=== PATIENT | female | born 1985 | race Two or more races ===

== ENCOUNTER 2016-10-13 10:22 | Emergency (ER) | payer MEDICAID, OTHER ==
[~2016-10-13] VITALS: Ht 157.5 cm; Wt 72.1 kg
[2016-10-13 10:22] VITALS: BP 121/70
[~2016-10-13 10:22] MED LIST: ALBUTEROL SULF8.5 GM INH; AMCINONIDE TP; ATARAX50 MG ORAL; AZITHROMYCIN250 MG ORAL; AZITHROMYCIN250 MG PO; BACTRIM DS TAB1 EAC1 ORAL; CLOBETASOL EMOL15 GM TP; CYCLOBENZAPRINE10 MG ORAL; DIFLUCAN150 MG PO; DOVONEX60 GM TOP; FLUOCINONIDE-E15 G1 TP; FLUOCINONIDE1 GM MC; GUAIFENESIN-CO118 M1 ORAL; HUMIRA; HUMIRA40 MG/0.2 SUBQ; HYDROCODON-ACE1 EA15 ORAL; IRON325 M2 PO; KEFLEX500 MG ORAL; KENALOG 0.5% CR15 GM TOPIC; MACROBID100 MG ORAL; MEDROL DOSEPAK4 MG ORAL; METRONIDAZOLE500 MG ORAL; NKM; NORCO 5-325 TA1 EACH ORAL; NORCO1 EA ORAL; PHENERGAN/CODE120 ML PO; PREDNISONE20 MG PO; PRENATAL MULTI1 EAC1 PO; TYLENOL325 MG ORAL; ZOFRAN ODT4 MG ORAL; ZOFRAN4 M1 ORAL
[2016-10-13] MEDS ORDERED: Albuterol ud Inhalation HHN ONE (12:45)
--- NOTE | 2016-10-13 13:25 | Emergency Room Report ---
History of Present Illness General Chief Complaint: Upper Respiratory Illness Source: Patient Present Illness HPI Patient states that for the past 4 days he has had cough and congestion. She states that the cough is severe. She has a history of asthma and feels short of breath. She also has had ear pain. She denies fever or chills. She denies nausea or vomiting. She states that she does have a history of needing albuterol when she gets respiratory infections but is currently out of her albuterol. She also states that she noticed that the skin on her face was swollen this morning. She has no other complaints. Allergies: Coded Allergies: No Known Allergies (Unverified , 05/07/12) Patient History Past Medical History: see triage record, asthma Social History: Denies: alcohol use, drug use, smoking Last Menstrual Period: on period Now: No Reviewed Nursing Documentation: PMH: Agreed, PSxH: Agreed Nursing Documentation-PMH Past Medical History: No History, Except For Hx Hypertension: No - PSORIASIS, KIDNEY STONES Hx Pacemaker: No Hx Dialysis: No Review of Systems All Other Systems: negative except mentioned in HPI Physical Exam Vital Signs Date Time Temp Pulse Resp B/P Pulse Ox O2 Delivery O2 Flow Rate FiO2 10/13/16 10:22 98.1 80 20 121/70 100 Room Air 10/13/16 12:48 21 Sp02 EP Interpretation: reviewed, normal General Appearance: no apparent distress, alert, GCS 15, non-toxic Head: normocephalic, atraumatic Eyes: bilateral eye PERRL, bilateral eye normal inspection ENT: hearing grossly normal, normal pharynx, no angioedema, normal voice Neck: full range of motion, supple/symm/no masses Respiratory: chest non-tender, lungs clear, normal breath sounds, speaking full sentences Cardiovascular #1: regular rate, rhythm, no edema Rectal: deferred Musculoskeletal: back normal, gait/station normal, normal range of motion, non- tender Neurologic: alert, oriented x3, responsive, motor strength/tone normal, sensory intact, speech normal Psychiatric: judgement/insight normal, memory normal, mood/affect normal, no suicidal/homicidal ideation Skin: normal color, no rash, warm/dry, well hydrated Medical Decision Making Diagnostic Impression: Primary Impression: Upper respiratory infection Additional Impression: Asthma exacerbation ER Course This patient has a clinical presentation with upper respiratory tract infection. The evaluation was very reassuring with a normal lung exam, no respiratory distress, normal pulse oximetry. I am not concerned for pneumonia in this patient. Chest x-ray shows no opacity. Patient has a history of asthma and so will give the patient a Z-Yonathan, prednisone and albuterol. The patient given return precautions and followup instructions. No emergency medical condition was identified. Chest X-Ray Diagnostic Results EP Interpretation: Yes Findings: no consolidation, no effusion, no pneumothorax, no acute cardiopulmonary disease Number of Views: 1 Last Vital Signs Date Time Temp Pulse Resp B/P Pulse Ox O2 Delivery O2 Flow Rate FiO2 10/13/16 12:51 70 18 Room Air 21 10/13/16 12:50 99 10/13/16 10:22 98.1 121/70 Disposition: HOME, SELF-CARE Condition: Improved Referrals: NON PHYSICIAN (PCP) Patient Instructions: Upper Respiratory Infection, Adult LEANA VILLALOBOS D.O. Oct 13, 2016 13:25
--- NOTE | 2016-10-13 13:31 | Diagnostic Imaging Report ---
Indication: COUGH Technique: One view of the chest Comparison: 11/24/2015 Findings: Lungs and pleural spaces are clear. Heart size is normal. No significant change Impression: No acute process
[2016-10-13] MEDS ORDERED: ALBUTEROL SULF8.5 GM INH (13:40)
[2016-10-13] MEDS ORDERED: ZITHROMAX250 MG ORAL (13:40)
[2016-10-13] MEDS ORDERED: PREDNISONE20 MG ORAL (13:40)
[2016-10-13 13:46] VITALS: BP 107/60
== END 2016-10-13 13:47 | disposition home or self-care (01) ==
LOC: EMR 11:06
DX: J06.9 Acute upper respiratory infection, unspecified (principal); J45.901 Unspecified asthma with (acute) exacerbation; Z87.442 Personal history of urinary calculi
CPT/HCPCS: 71010; 94640; 94664; 99284

== ENCOUNTER 2016-12-20 21:06 | Emergency (ER) | payer MEDICAID ==
[~2016-12-20] VITALS: Ht 157.5 cm; Wt 75.7 kg
[~2016-12-20 21:06] MED LIST changes: +PREDNISONE20 MG ORAL; +ZITHROMAX250 MG ORAL
[2016-12-20] MEDS ORDERED: NKM (21:23)
[2016-12-20] MEDS ORDERED: Acetaminophen 500mg (ES) tab PO ONE (21:45)
[2016-12-20] MEDS ORDERED: IBUPROFEN600 MG ORAL (22:45)
[2016-12-20 22:50] VITALS: BP 107/55
--- NOTE | 2016-12-21 07:26 | Emergency Room Report ---
History of Present Illness General Chief Complaint: Pain Source: Patient Present Illness HPI 31-year-old female presents ED complaining of right big toe pain. States that last night she accidentally closed a large metal folding table on her right foot. Was not wearing shoes. Patient notes pain and swelling to the right big toe. 8/10, throbbing, nonradiating. Notes pain but is able to walk. Denies any other injuries. No other aggravating relieving factors. Denies any other associated symptoms Allergies: Coded Allergies: No Known Allergies (Unverified , 12/20/16) Patient History Past Medical History: none Past Surgical History: none Pertinent Family History: none Social History: Denies: alcohol use, drug use, smoking Last Menstrual Period: 3 weeks ago Now: No - IUD Immunizations: UTD Reviewed Nursing Documentation: PMH: Agreed, PSxH: Agreed Nursing Documentation-PMH Past Medical History: No History, Except For Hx Hypertension: No - PSORIASIS, KIDNEY STONES Hx Pacemaker: No Hx Dialysis: No Review of Systems All Other Systems: negative except mentioned in HPI Physical Exam Vital Signs Date Time Temp Pulse Resp B/P Pulse Ox O2 Delivery O2 Flow Rate FiO2 12/20/16 21:17 97.9 69 16 109/70 98 Room Air Sp02 EP Interpretation: reviewed, normal General Appearance: no apparent distress, alert, GCS 15, non-toxic Head: normocephalic Eyes: bilateral eye PERRL, bilateral eye normal inspection ENT: normal ENT inspection Neck: normal inspection Respiratory: normal inspection Cardiovascular #1: normal inspection Gastrointestinal: normal inspection Rectal: deferred Genitourinary: no CVA tenderness Musculoskeletal: tender - R big toe Neurologic: alert, oriented x3, responsive, motor strength/tone normal, sensory intact, speech normal Psychiatric: normal inspection Skin: normal inspection Lymphatic: normal inspection Medical Decision Making Diagnostic Impression: Primary Impression: Toe contusion Qualified Codes: S90.111A - Contusion of right great toe without damage to nail, initial encounter ER Course Hospital Course 31-year-old F presents to ED complaining of R big toe pain/bruising Differential diagnoses include: Fracture, dislocation, sprain, contusion Clinical course Patient placed on stretcher. After initial history and physical, I ordered pain medications and Xrays of R foot Xrays prelim read shows no acute fracture/dislocation. placed in kerlex wrap Diagnosis - toe contusion Stable and discharged to home. apply ice, keep elevated. weight bear as tolerated. Followup with PMD. Return to ED if symptoms recur or worsen Other X-Ray Diagnostic Results Other X-Ray Diagnostic Results : X-Ray Ordered: R foot EP Interpretation: Yes Findings: no fractures, no dislocation, no soft tissue swelling Number of Views: 3 Last Vital Signs Date Time Temp Pulse Resp B/P Pulse Ox O2 Delivery O2 Flow Rate FiO2 12/20/16 22:50 97.8 61 14 107/55 98 Room Air Status: improved Disposition: HOME, SELF-CARE Condition: Stable Scripts Ibuprofen* (MOTRIN*) 600 Mg Tablet 600 MG ORAL Q8H Y for For Pain, #30 TAB 0 Refills Prov: NADIA AYALA M.D. 12/20/16 Referrals: NON PHYSICIAN (PCP) Patient Instructions: Contusion, [id number] NADIA AYALA M.D. December 21, 2016 07:26
--- NOTE | 2016-12-21 12:16 | Diagnostic Imaging Report ---
Indication: PAIN Technique: 3 views right foot Comparison: none Findings: There is mild degenerative changes of first metatarsal phalangeal joint. There is minimal hallux valgus and metatarsus adductus. No acute fractures. No dislocations. Joint spaces are preserved. Impression: Negative
== END 2016-12-20 22:50 | disposition home or self-care (01) ==
LOC: EMR 21:34
DX: S90.111A Contusion of right great toe without damage to nail, initial encounter (principal); X58.XXXA Exposure to other specified factors, initial encounter; Y93.9 Activity, unspecified; Y92.9 Unspecified place or not applicable; Z87.442 Personal history of urinary calculi
CPT/HCPCS: 99283

== ENCOUNTER 2017-03-11 20:34 | Emergency (ER) | payer MEDICAID ==
[~2017-03-11] VITALS: Ht 160 cm; Wt 76.7 kg
[~2017-03-11 20:34] MED LIST changes: +IBUPROFEN600 MG ORAL
[2017-03-11] MEDS ORDERED: NKM (20:53)
[2017-03-11] MEDS ORDERED: PREDNISONE20 MG ORAL (21:22)
[2017-03-11] MEDS ORDERED: HYDROCODON-ACE1 EA15 ORAL (21:22)
[2017-03-11] MEDS ORDERED: BENADRYL25 MG ORAL (21:22)
--- NOTE | 2017-03-11 21:23 | Emergency Room Report ---
History of Present Illness General Chief Complaint: General Complaint Source: Patient Present Illness HPI Is a 31-year-old female with psoriasis. She presents with chief complaint of itchiness and swelling to joints or hand. Similar symptom in the past. Denies any fever chills but no nausea no vomiting. No trauma. Pain is 8/10. Worse with scratching. [id number] Benadryl not helping. Allergies: Coded Allergies: No Known Allergies (Unverified , 12/20/16) Patient History Past Medical History: see triage record, old chart reviewed Past Surgical History: other Pertinent Family History: none Social History: Denies: smoking Last Menstrual Period: 1 month ago Now: No Immunizations: other Reviewed Nursing Documentation: PMH: Agreed, PSxH: Agreed Nursing Documentation-PMH Past Medical History: No History, Except For Hx Cardiac Problems: No - Psoriasis Hx Hypertension: No Hx Pacemaker: No Hx COPD: No - Bronchitis Hx Dialysis: No Review of Systems Eye: Denies: blurred vision, eye pain ENT: Denies: ear pain, nose congestion, throat swelling Respiratory: Denies: cough, shortness of breath Cardiovascular: Denies: chest pain, palpitations Gastrointestinal: Denies: abdominal pain, diarrhea, nausea, vomiting Musculoskeletal: Reports: joint pain, joint swelling, muscle stiffness, Denies : back pain Skin: Denies: rash Neurological: Denies: headache, numbness Endocrine: Denies: increased thirst, increased urine Hematologic/Lymphatic: Denies: easy bruising All Other Systems: negative except mentioned in HPI Physical Exam Vital Signs Date Time Temp Pulse Resp B/P Pulse Ox O2 Delivery O2 Flow Rate FiO2 03/11/17 20:47 98.6 80 16 107/73 100 Room Air vitals normal Sp02 EP Interpretation: reviewed, normal General Appearance: well appearing, no apparent distress, alert Head: normocephalic, atraumatic Eyes: bilateral eye EOMI, bilateral eye PERRL ENT: hearing grossly normal, normal pharynx Neck: full range of motion, supple, no meningismus Respiratory: chest non-tender, lungs clear, normal breath sounds Cardiovascular #1: regular rate, rhythm, no murmur Gastrointestinal: normal bowel sounds, non tender, no mass, no organomegaly, no bruit, non-distended Musculoskeletal: back normal, gait/station normal, normal range of motion, swelling - She has generalized edema of the hands and finger. No erythema. No warmth. Psychiatric: mood/affect normal Skin: warm/dry Medical Decision Making Diagnostic Impression: Primary Impression: Psoriasis Additional Impression: Arthralgia of both hands ER Course Patient with arthralgia and edema joints of the hands. No evidence of septic joint. Onset infection. We'll put back on prednisone. We'll discharge home. Last Vital Signs Date Time Temp Pulse Resp B/P Pulse Ox O2 Delivery O2 Flow Rate FiO2 03/11/17 20:47 98.6 80 16 107/73 100 Room Air Status: improved Disposition: HOME, SELF-CARE Condition: Stable Scripts Prednisone* (PREDNISONE*) 20 Mg Tablet 60 MG ORAL DAILY, #12 TAB Prov: ASHLEY ROGER M.D. 03/11/17 Diphenhydramine Hcl* (BENADRYL*) 25 Mg Capsule 50 MG ORAL Q6H Y for Itching, #30 CAP Prov: ASHLEY ROGER M.D. 03/11/17 Hydrocodone/Acetaminophen 5-325* (HYDROCODONE/ACETAMINOPHEN 5-325*) 1 Each Tablet 1 TAB ORAL Q6H Y for For Pain, #20 TAB 0 Refills Prov: ASHLEY ROGER M.D. 03/11/17 Additional Instructions: Followup with your brick tosser within 7 days. Return if symptom worsen. ASHLEY ROGER M.D. Mar 11, 2017 21:23
[2017-03-11] MEDS: Norco 5mg/325mg tab ORAL ONE ×2 (21:28→21:32)
[2017-03-11] MEDS ORDERED: PredniSONE 20mg tab ORAL ONE (21:30)
[2017-03-11 21:41] VITALS: BP 107/73
[2017-03-13] MEDS ORDERED: NKM (13:53)
[2017-03-13] MEDS ORDERED: ZANTAC150 MG ORAL (14:29)
== END 2017-03-12 00:08 | disposition home or self-care (01) ==
LOC: EMR 21:13
DX: L40.9 Psoriasis, unspecified (principal); M25.542 Pain in joints of left hand; M25.541 Pain in joints of right hand
CPT/HCPCS: 99284

== ENCOUNTER 2017-03-13 13:39 | Emergency (ER) | payer MEDICAID ==
[~2017-03-13] VITALS: Ht 160 cm; Wt 76.7 kg
[~2017-03-13 13:39] MED LIST changes: +BENADRYL25 MG ORAL
[2017-03-13] MEDS ORDERED: NKM (13:53)
[2017-03-13 14:02] VITALS: BP 104/67
--- NOTE | 2017-03-13 14:26 | Emergency Room Report ---
History of Present Illness General Chief Complaint: General Complaint Source: Patient Present Illness HPI 31 YO Female presents to the ED c/o itching and swelling of UE's intermittently x 2 days with swelling of the lips , and numbness to the tip of the tongue since 5am today. pt. denies cough, wheezing, or difficulty breathing. pt. took 2 Benadryl this am at approx 5:30am . pt. was seen here in ED on Tuesday and rx'd Prednisone, Bendadryl and [place] for which she has not filled yet. pt. has hx of extensive psoriasis. Denies lesions/rashes elsewhere on the body. Denies new medications or body washes or creams. Denies swelling of the lips, tongue , throat or airway. Denies wheezing, or shortness of breath. Denies recent travel, recent illness or ill contacts. denies blisters , oral lesions, or sloughing of the skin. Allergies: Coded Allergies: No Known Allergies (Unverified , 12/20/16) Patient History Past Medical History: see triage record Past Surgical History: none Pertinent Family History: none Last Menstrual Period: Current Now: No Immunizations: UTD Reviewed Nursing Documentation: PMH: Agreed, PSxH: Agreed Nursing Documentation-PMH Hx Hypertension: No Hx Pacemaker: No Hx COPD: No - Bronchitis Hx Dialysis: No Review of Systems All Other Systems: negative except mentioned in HPI Physical Exam Vital Signs Date Time Temp Pulse Resp B/P Pulse Ox O2 Delivery O2 Flow Rate FiO2 03/13/17 13:46 97.9 74 16 101/65 98 Room Air Sp02 EP Interpretation: reviewed, normal General Appearance: no apparent distress, alert, GCS 15, non-toxic Head: normocephalic, atraumatic Eyes: bilateral eye PERRL, bilateral eye normal inspection ENT: hearing grossly normal, normal pharynx, no angioedema, normal voice, uvula midline, moist mucus membranes, other - mild swelling to the lower lip, no obvious swelling of the upper lips or tongue. Neck: full range of motion, supple/symm/no masses, other - no stridor Respiratory: lungs clear, normal breath sounds, no wheezing, speaking full sentences Cardiovascular #1: regular rate, rhythm, no edema Musculoskeletal: back normal, gait/station normal, normal range of motion, non- tender Neurologic: alert, oriented x3, responsive, motor strength/tone normal, sensory intact, speech normal Psychiatric: judgement/insight normal, memory normal, mood/affect normal Skin: normal color, warm/dry, well hydrated, rash - significant amount of psoriatic plaques to the bilateral UE's and posterior neck. mild swelling to the lower lip, no obvious swelling of the upper lips or tongue. Lymphatic: no adenopathy Medical Decision Making PA Attestation Dr. powers is my supervising Physician whom patient management has been discussed with. Diagnostic Impression: Primary Impression: Allergic reaction Qualified Codes: T78.40XA - Allergy, unspecified, initial encounter Additional Impression: Rash and other nonspecific skin eruption ER Course Pt. presents to the ED c/o itching and swelling of UE's intermittently x 2 days with swelling of the lips , and numbness to the tip of the tongue since 5am today. pt. denies cough, wheezing, or difficulty breathing. pt. took 2 Benadryl this am at approx 5:30am . pt. was seen here in ED on Tuesday and rx'd Prednisone, Bendadryl and [place] for which she has not filled yet. pt. has hx of extensive psoriasis. Ddx considered but are not limited to cellulitis, allergic reaction, angio edema , abscess Vital signs: are WNL, pt. is afebrile H&PE are most consistent with allergic reaction, no evidence to suggest anaphylaxis or airway compromise at this time. ORDERS: none required at this time, the diagnosis is clinical ED INTERVENTIONS: - Benadryl PO -Prednisone PO -Zantac PO DISCHARGE: At this time pt. is stable for d/c to home. Will provide printed patient care instructions, and any necessary prescriptions. Care plan and follow up instructions have been discussed with the patient prior to discharge. Last Vital Signs Date Time Temp Pulse Resp B/P Pulse Ox O2 Delivery O2 Flow Rate FiO2 03/13/17 14:02 98.0 71 15 104/67 99 Room Air Disposition: HOME, SELF-CARE Condition: Stable Scripts Ranitidine Hcl* (ZANTAC*) 150 Mg Tablet 150 MG ORAL TWICE A DAY for 7 Days, #14 TAB Prov: Guerda Medrano 03/13/17 Referrals: NON PHYSICIAN (PCP) Additional Instructions: Take previously prescribed medications ( PREDNISONE AND BENADRYL as directed. Follow up with a Primary Care Provider in 3-5 days, even if your symptoms have resolved. --Please review list of primary care clinics, if you do not already have a primary care provider Return sooner to ED if new symptoms occur, or current symptoms become worse. Do not drink alcohol, drive, or operate heavy machinery while taking Benadryl as this may cause drowsiness. - Please note that this Emergency Department Report was dictated using [employer]ated equipment engineer technician technology software, occasionally this can lead to erroneous entry secondary to interpretation by the dictation equipment. Guerda Medrano Mar 13, 2017 14:26
[2017-03-13] MEDS ORDERED: ZANTAC150 MG ORAL (14:29)
[2017-03-13] MEDS ORDERED: PredniSONE 20mg tab ORAL ONE (14:30)
[2017-03-13 14:49] VITALS: BP 104/67
== END 2017-03-13 14:51 | disposition home or self-care (01) ==
LOC: EMR 14:18
DX: T78.40XA Allergy, unspecified, initial encounter (principal); R21 Rash and other nonspecific skin eruption; X58.XXXA Exposure to other specified factors, initial encounter; Y93.9 Activity, unspecified; Y92.9 Unspecified place or not applicable
CPT/HCPCS: 99284

== ENCOUNTER 2017-06-06 12:26 | Emergency (ER) | payer MEDICAID ==
[~2017-06-06] VITALS: Ht 160 cm; Wt 76.7 kg
[~2017-06-06 12:26] MED LIST changes: +ZANTAC150 MG ORAL
--- NOTE | 2017-06-06 12:56 | Emergency Room Report ---
History of Present Illness General Chief Complaint: Upper Respiratory Illness Source: Patient Present Illness HPI 31 YO Female presents to the ED c/o dry cough and chest congestion x 5 days, hx of bronchitis and inhaler requirements with URI's. pt. states she had a fever of 102 two days ago which has not returned, no relief of symptoms with OTC cough medications. Patient denies neck pain or stiffness. Patient reports consistent coughing to the point that her back and anterior ribcage are sore with pain that is exacerbated upon coughing. Patient states she feels as though she has moderate amount of mucus in the throat however she is having a difficulty time clearing the mucus. Patient reports sore throat graded as 8/10 in severity. Denies ill contacts or recent travel. Patient does report history of intermittent asthma and states that when she gets a respiratory infection she usually requires treatment for her wheezing. Denies CP, Palpitations, LOC, AMS, dizziness, Changes in Vision, Sensation, paresthesias, or a sudden severe headache. Allergies: Coded Allergies: No Known Allergies (Unverified , 12/20/16) Patient History Past Medical History: see triage record Past Surgical History: none Pertinent Family History: none Last Menstrual Period: 05/28/17 Now: No Reviewed Nursing Documentation: PMH: Agreed, PSxH: Agreed Nursing Documentation-PMH Past Medical History: No Stated History Hx Hypertension: No Hx Pacemaker: No Hx COPD: No - Bronchitis Hx Dialysis: No Review of Systems All Other Systems: negative except mentioned in HPI Physical Exam Vital Signs Date Time Temp Pulse Resp B/P (MAP) Pulse Ox O2 Delivery O2 Flow Rate FiO2 06/06/17 12:35 98.2 85 18 114/50 98 Room Air Sp02 EP Interpretation: reviewed, normal General Appearance: no apparent distress, alert, GCS 15, non-toxic Head: normocephalic, atraumatic Eyes: bilateral eye normal inspection, bilateral eye PERRL ENT: hearing grossly normal, normal pharynx, no angioedema, normal voice, TMs + canals normal, uvula midline, moist mucus membranes, pharyngeal erythema Neck: full range of motion, no meningismus, supple/symm/no masses Respiratory: chest non-tender, lungs clear, normal breath sounds, speaking full sentences, wheezing - scant wheezes in the upper lung mahoney bilaterally. Cardiovascular #1: regular rate, rhythm, normal capillary refill Gastrointestinal: non tender, soft Rectal: deferred Musculoskeletal: back normal, gait/station normal, normal range of motion, non- tender Neurologic: alert, oriented x3, responsive, motor strength/tone normal, sensory intact, speech normal Psychiatric: judgement/insight normal, memory normal, mood/affect normal Skin: normal color, no rash, warm/dry, well hydrated Lymphatic: no adenopathy Medical Decision Making PA Attestation Dr. Thompson is my supervising Physician whom patient management has been discussed with. Diagnostic Impression: Primary Impression: Bronchitis ER Course 31 YO Female presents to the ED c/o dry cough and chest congestion x 5 days, hx of bronchitis and inhaler requirements with URI's. pt. states she had a fever of 102 two days ago which has not returned, no relief of symptoms with OTC cough medications. Patient denies neck pain or stiffness. Patient reports consistent coughing to the point that her back and anterior ribcage are sore with pain that is exacerbated upon coughing. Patient states she feels as though she has moderate amount of mucus in the throat however she is having a difficulty time clearing the mucus. Patient reports sore throat graded as 8/10 in severity. Denies ill contacts or recent travel. Patient does report history of intermittent asthma and states that when she gets a respiratory infection she usually requires treatment for her wheezing. Denies CP, Palpitations, LOC, AMS, dizziness, Changes in Vision, Sensation, paresthesias, or a sudden severe headache. Ddx considered but are not limited to URI, pneumonia, PE, strep pharyngitis, meningitis. Vital signs: Pt.is afebrile VS are WNL H&PE are most consistent with bronchitis, lungs are CTA other than scant wheezes in the upper airways bilaterally. throat shows no exudates, no tonsillar swelling. no meningeal signs. ORDERS: none required at this time, the diagnosis is clinical ED INTERVENTIONS: none required at this time. DISCHARGE: At this time pt. is stable for d/c to home. Will provide printed patient care instructions, and any necessary prescriptions. Care plan and follow up instructions have been discussed with the patient prior to discharge. Last Vital Signs Date Time Temp Pulse Resp B/P (MAP) Pulse Ox O2 Delivery O2 Flow Rate FiO2 06/06/17 12:35 98.2 85 18 114/50 98 Room Air Disposition: HOME, SELF-CARE Condition: Stable Scripts Ibuprofen* (MOTRIN*) 600 Mg Tablet 600 MG ORAL THREE TIMES A DAY, #20 TAB 0 Refills Prov: Guerda Medrano 06/06/17 Albuterol Sulfate* (ALBUTEROL SULFATE MDI*) 8.5 Gm Hfa.aer.ad 2 PUFF INH Q3H, #1 INH 0 Refills Prov: Guerda Medrano 06/06/17 Guaifenesin (Guaifenesin) 1,200 Mg Tab.er.12h 1200 MG PO Q12HR for 10 Days, #20 TAB Prov: Guerda Medrano 06/06/17 Codeine/Promethazine Hcl* (PROMETHAZINE-CODEINE SYRUP*) 118 Ml Syrup 5 ML ORAL Q6H Y for For Cough, #120 ML 0 Refills Prov: Guerda Medrano 06/06/17 Referrals: NON PHYSICIAN (PCP) Patient Instructions: Acute Bronchitis, [id number] Additional Instructions: Take medications as directed. Follow up with a Primary Care Provider in 3-5 days, even if your symptoms have resolved. --Please review list of primary care clinics, if you do not already have a primary care provider Return sooner to ED if new symptoms occur, or current symptoms become worse. Do not drink alcohol, drive, or operate heavy machinery while taking Cough syrup as this may cause drowsiness. - Please note that this Emergency Department Report was dictated using [employer]ician oncology technology software, occasionally this can lead to erroneous entry secondary to interpretation by the dictation equipment. Guerda Medrano Jun 06, 2017 12:56
[2017-06-06] MEDS ORDERED: GUAIFENESIN1200 MG PO (13:15)
[2017-06-06] MEDS ORDERED: IBUPROFEN600 MG ORAL (13:15)
[2017-06-06] MEDS ORDERED: ALBUTEROL SULF8.5 GM INH (13:15)
[2017-06-06] MEDS ORDERED: PROMETHAZINE-C118 M1 ORAL (13:15)
[2017-06-06 14:03] VITALS: BP 106/70
== END 2017-06-06 14:03 | disposition home or self-care (01) ==
LOC: EMR 12:49
DX: J40 Bronchitis, not specified as acute or chronic (principal)
CPT/HCPCS: 99284

== ENCOUNTER 2017-08-25 19:28 | Emergency (ER) | payer MEDICAID, OTHER ==
[~2017-08-25] VITALS: Ht 160 cm; Wt 77.1 kg
[~2017-08-25 19:28] MED LIST changes: +GUAIFENESIN1200 MG PO; +PROMETHAZINE-C118 M1 ORAL
[2017-08-25] MEDS ORDERED: CEPHALEXIN500 MG ORAL (20:02)
--- NOTE | 2017-08-25 20:03 | Emergency Room Report ---
History of Present Illness General Chief Complaint: Lower Extremity Injury Source: Patient Present Illness HPI Patient complaining of ingrown toenail to her left great toe that began 2 days ago. She states pain is 7/10 in severity. She denies any fever, chills or associated symptoms. Patient has no significant medical problems and denies tobacco alcohol or drug use. Allergies: Coded Allergies: No Known Allergies (Unverified , 12/20/16) Patient History Last Menstrual Period: on period now Reviewed Nursing Documentation: PMH: Agreed, PSxH: Agreed Nursing Documentation-PMH Hx Hypertension: No Hx Pacemaker: No Hx COPD: No - Bronchitis Hx Dialysis: No Review of Systems Skin: Reports: other - ingrown toenail All Other Systems: negative except mentioned in HPI Physical Exam Vital Signs Date Time Temp Pulse Resp B/P (MAP) Pulse Ox O2 Delivery O2 Flow Rate FiO2 08/25/17 19:29 97.7 73 12 137/87 96 Room Air Sp02 EP Interpretation: reviewed, normal General Appearance: no apparent distress, alert, GCS 15, non-toxic Head: normocephalic, atraumatic Eyes: bilateral eye normal inspection, bilateral eye PERRL ENT: hearing grossly normal, normal pharynx, no angioedema, normal voice Neck: full range of motion, supple/symm/no masses Respiratory: chest non-tender, lungs clear, normal breath sounds, speaking full sentences Cardiovascular #1: regular rate, rhythm, no edema Cardiovascular #2: 2+ carotid (R), 2+ carotid (L), 2+ radial (R), 2+ radial (L) , 2+ dorsalis pedis (R), 2+ dorsalis pedis (L) Gastrointestinal: normal bowel sounds, non tender, soft, non-distended, no guarding, no rebound Rectal: deferred Genitourinary: normal inspection, no CVA tenderness Musculoskeletal: back normal, gait/station normal, normal range of motion, non- tender, calf tenderness Neurologic: alert, oriented x3, responsive, motor strength/tone normal, sensory intact, speech normal Psychiatric: judgement/insight normal, memory normal, mood/affect normal, no suicidal/homicidal ideation Reflexes: 3+ bicep (R), 3+ bicep (L), 3+ tricep (R), 3+ tricep (L), 3+ knee (R) , 3+ knee (L) Skin: normal color, no rash, warm/dry, well hydrated, other - ingrown toenail medial aspect of left great toe Lymphatic: no adenopathy Procedures Incision and Drainage Incision and Drainage : Consent: Verbal Site: ingrown toenail I & D Procedure: betadine prep Wound Location: other - right great toe Wound Explored: clean Patient Tolerated: Well Complications: None Medical Decision Making PA Attestation Supervising physician Dr. Pollock Diagnostic Impression: Primary Impression: Ingrown toenail ER Course Ingrown toenail is removed, patient tolerated procedure well. Patient is discharged home with Keflex. Instructed to follow with PCP as needed for reevaluation. Patient understands and is agreeable with plan. Last Vital Signs Date Time Temp Pulse Resp B/P (MAP) Pulse Ox O2 Delivery O2 Flow Rate FiO2 08/25/17 19:29 97.7 73 12 137/87 96 Room Air Status: improved Disposition: HOME, SELF-CARE Condition: Stable Scripts Cephalexin* (KEFLEX*) 500 Mg Capsule 500 MG ORAL EVERY 6 HOURS for 10 Days, #40 CAP Prov: Delia Panda 08/25/17 Patient Instructions: Ingrown Toenail Delia Panda Aug 25, 2017 20:02
[2017-08-25 20:15] VITALS: BP 137/87
== END 2017-08-25 20:15 | disposition home or self-care (01) ==
LOC: EMR 20:01
DX: L60.0 Ingrowing nail (principal)
CPT/HCPCS: 10060; 99283

== ENCOUNTER 2017-11-30 19:57 | Emergency (ER) | payer OTHER ==
[~2017-11-30] VITALS: Ht 160 cm; Wt 78.9 kg
[~2017-11-30 19:57] MED LIST changes: +CEPHALEXIN500 MG ORAL
[2017-11-30 20:21] VITALS: BP 108/67
[2017-11-30] MEDS ORDERED: Promethazine/Codeine 5ml UD ORAL ONE (20:45)
--- NOTE | 2017-11-30 20:57 | Emergency Room Report ---
History of Present Illness General Chief Complaint: Upper Respiratory Illness Present Illness HPI 32 YO Female presents to the ED c/o 05/10 in severity sore throat, persistent non-productive cough , nasal congestion and excessive clear rhinorrhea, with body-aches since Tuesday. Pt. also reports right ear pain. reports taking Mucinex , airborne and some Motrin 200mg with no relief of her symptoms. Denies high fevers, lethargy, neck pain/stiffness, irritability, photophobia dehydration, N/ V/D. Denies Cp, Palpitations, LOC, AMS, seizures, paresthesias, or changes in Hearing or vision, no Sudden severe SAWYER. Pt. UTD with vaccinations, denies recent travel or ill contacts. Pt. took Motrin once this am. Allergies: Coded Allergies: No Known Allergies (Unverified , 12/20/16) Patient History Past Medical History: see triage record Past Surgical History: none Pertinent Family History: none Last Menstrual Period: last month Immunizations: UTD Reviewed Nursing Documentation: PMH: Agreed; PSxH: Agreed Nursing Documentation-PMH Hx Hypertension: No Hx Pacemaker: No Hx COPD: No - Bronchitis Hx Dialysis: No Review of Systems All Other Systems: negative except mentioned in HPI Physical Exam Vital Signs Date Time Temp Pulse Resp B/P (MAP) Pulse Ox O2 Delivery O2 Flow Rate FiO2 11/30/17 20:01 98.0 89 18 108/67 96 Room Air 98.1 Sp02 EP Interpretation: reviewed, normal General Appearance: no apparent distress, alert, GCS 15, non-toxic Head: normocephalic, atraumatic Eyes: bilateral eye normal inspection, bilateral eye PERRL ENT: hearing grossly normal, normal voice, TMs + canals normal, uvula midline, moist mucus membranes, nasal congestion, pharyngeal erythema Neck: full range of motion, no meningismus, no bony tend Respiratory: chest non-tender, lungs clear, normal breath sounds, no rhonchi, no respiratory distress, no wheezing, speaking full sentences Cardiovascular #1: regular rate, rhythm Musculoskeletal: back normal, gait/station normal, normal range of motion, non- tender Neurologic: alert, oriented x3, responsive, motor strength/tone normal, sensory intact, speech normal, grossly normal Psychiatric: judgement/insight normal Skin: normal color, no rash, warm/dry, well hydrated Lymphatic: other - Subparotid lymphadenopathy noted bilaterally Medical Decision Making PA Attestation Dr. Sarabia is my supervising Physician whom patient management has been discussed with. Diagnostic Impression: Primary Impression: Pharyngitis with viral syndrome Additional Impression: Upper respiratory infection, viral ER Course 32 YO Female presents to the ED c/o 05/10 in severity sore throat, persistent non-productive cough , nasal congestion and excessive clear rhinorrhea, with body-aches since Tuesday. Pt. also reports right ear pain. reports taking Mucinex , airborne and some Motrin 200mg with no relief of her symptoms. Denies high fevers, lethargy, neck pain/stiffness, irritability, photophobia dehydration, N/ V/D. Denies Cp, Palpitations, LOC, AMS, seizures, paresthesias, or changes in Hearing or vision, no Sudden severe SAWYER. Pt. UTD with vaccinations, denies recent travel or ill contacts. Pt. took Motrin once this am. Ddx considered but are not limited to URI, pneumonia, PE, strep pharyngitis, meningitis., OM/OE, bronchitis, viral syndrome just to name a few. Vital signs: Pt. is afebrile, the remaining VS are WNL H&PE are most consistent with URI- no meningeal signs, oropharynx is not involved, no evidence of bacterial infection at this time. Pt. does not meed [facility] criteria ORDERS: none required at this time, the diagnosis is clinical ED INTERVENTIONS: -Cough Syrup PO -Motrin PO --PT. EDUCATION: Discussed antibiotic resistance with inappropriate prescribing of antibiotics for viral illnesses. Discussed signs and symptoms to indicate viral illness versus bacterial illness. DISCHARGE: At this time pt. is stable for d/c to home. Will provide printed patient care instructions, and any necessary prescriptions. Care plan and follow up instructions have been discussed with the patient prior to discharge. Last Vital Signs Date Time Temp Pulse Resp B/P (MAP) Pulse Ox O2 Delivery O2 Flow Rate FiO2 11/30/17 20:47 98.1 11/30/17 20:21 89 18 Room Air 11/30/17 20:21 108/67 96 Disposition: HOME, SELF-CARE Condition: Stable Scripts Lidocaine HCl 2% Viscous (Lidocaine HCl 2% Viscous) 100 Ml Solution 10 ML ORAL QID, #150 ML Prov: Guerda Medrano P.A. 11/30/17 Ibuprofen* (MOTRIN*) 600 Mg Tablet 600 MG ORAL THREE TIMES A DAY, #20 TAB 0 Refills Prov: Guerda Medrano 11/30/17 Cetirizine Hcl/Pseudoephedrine (ZYRTEC-D TABLET) 1 Each Tab.er.12h 1 EACH ORAL Q12HR for 7 Days, #14 TAB Prov: Guerda Medrano 11/30/17 Guaifenesin (Guaifenesin) 1,200 Mg Tab.er.12h 1200 MG PO BID for 10 Days, #20 TAB Prov: Guerda Medrano 11/30/17 Codeine/Promethazine Hcl* (PROMETHAZINE-CODEINE SYRUP*) 118 Ml Syrup 5 ML ORAL Q6H PRN for For Cough, #120 ML 0 Refills Prov: Guerda Medrano 11/30/17 Referrals: [facility],REFERRING (PCP) Departure Forms: Return to Work Return to Work Date: December 04, 2017 Work Restrictions: None Return to Full Activity: December 04, 2017 Patient Instructions: Upper Respiratory Infection, Adult Additional Instructions: Take medications as directed. Follow up with a Primary Care Provider in 3-5 days, even if your symptoms have resolved. --Please review list of primary care clinics, if you do not already have a primary care provider Return sooner to ED if new symptoms occur, or current symptoms become worse. Do not drink alcohol, drive, or operate heavy machinery while taking Cough Syrup as this may cause drowsiness. - Please note that this Emergency Department Report was dictated using [employer] fr[employer] technology software, occasionally this can lead to erroneous entry secondary to interpretation by the dictation equipment. Guerda Medrano November 30, 2017 20:57
[2017-11-30] MEDS ORDERED: ZYRTEC-D TABLE1 EACH ORAL (21:03)
[2017-11-30] MEDS ORDERED: GUAIFENESIN1200 MG PO (21:03)
[2017-11-30] MEDS ORDERED: PROMETHAZINE-C118 M1 ORAL (21:03)
[2017-11-30] MEDS ORDERED: IBUPROFEN600 MG ORAL (21:03)
[2017-11-30] MEDS ORDERED: LIDOCAINE VISC100 ML ORAL (21:03)
[2017-11-30 21:15] VITALS: BP 108/67
== END 2017-11-30 21:15 | disposition home or self-care (01) ==
LOC: EMR 20:20
DX: J02.9 Acute pharyngitis, unspecified (principal); J06.9 Acute upper respiratory infection, unspecified; B34.9 Viral infection, unspecified
CPT/HCPCS: 99284

== ENCOUNTER 2018-01-03 21:24 | Emergency (ER) | payer OTHER ==
[~2018-01-03] VITALS: Ht 157.5 cm; Wt 78.9 kg
[~2018-01-03 21:24] MED LIST changes: +LIDOCAINE VISC100 ML ORAL; +ZYRTEC-D TABLE1 EACH ORAL
[2018-01-03] MEDS ORDERED: MUPIROCIN22 GM TOPIC (21:46)
[2018-01-03] MEDS ORDERED: SORIATANE25 MG PO (21:46)
[2018-01-03] MEDS ORDERED: AUGMENTIN (21:46)
[2018-01-03] MEDS ORDERED: Ketorolac 30mg Inj IV ONE (22:00)
[2018-01-03] MEDS ORDERED: Clindamycin 900mg 50 ML IVPB ONE (22:00)
[2018-01-03] MEDS ORDERED: Dexamethasone 4mg/ml vial IVP ONE (22:00)
[2018-01-03 22:07] LABS: BASOPHILS % (AUTO) 1.2 % (0.0-2.0); EOSINOPHILS % (AUTO) 3.7 % (0.0-3.0); HEMATOCRIT 36.3 % (37.0-47.0); HEMOGLOBIN 12.6 G/DL (12.0-16.0); LYMPHOCYTES % (AUTO) 32.3 % (20.0-45.0); MEAN CORPUSCULAR VOLUME 88 FL (80-99); MONOCYTES % (AUTO) 9.5 % (1.0-10.0); NEUTROPHILS % (AUTO) 53.3 % (45.0-75.0); PLATELET COUNT 182 K/UL (150-450); RED BLOOD COUNT 4.13 M/UL (4.20-5.40); RED CELL DISTRIBUTION WIDTH 11.6 % (11.6-14.8); WHITE BLOOD COUNT 10.6 K/UL (4.8-10.8)
[2018-01-03 22:11] VITALS: BP 105/70
[2018-01-03 22:16] LABS: ANION GAP 8 mmol/L (5-15); BLOOD UREA NITROGEN 15 mg/dL (7-18); CALCIUM 9.4 MG/DL (8.5-10.1); CARBON DIOXIDE 26 MMOL/L (21-32); CHLORIDE 106 MMOL/L (98-107); CREATININE 0.7 MG/DL (0.55-1.30); POTASSIUM 3.8 MMOL/L (3.5-5.1); SODIUM 140 MMOL/L (136-145)
[2018-01-03] MEDS ORDERED: HYDROCODON-ACE1 EA15 ORAL (22:51)
[2018-01-03] MEDS ORDERED: PREDNISONE20 MG ORAL (22:51)
[2018-01-03] MEDS ORDERED: CLINDAMYCIN HC300 MG ORAL (22:51)
--- NOTE | 2018-01-03 22:51 | Emergency Room Report ---
History of Present Illness General Chief Complaint: Skin Rash/Abscess Source: Patient Present Illness HPI This 32-year-old female with history of psoriasis. She presents with 7 days history of exacerbation of her psoriasis. Her lower extremity is swollen and increasing rash. Tender to palpation. She is currently taking medication for her psoriasis already. She has new prescription for steroid cream and antibiotic ointment. Similar symptom in the past. No fever chills but no nausea no vomiting. Pain is throbbing and achy nature. Allergies: Coded Allergies: No Known Allergies (Unverified , 01/03/18) Patient History Past Medical History: see triage record, old chart reviewed Past Surgical History: other Pertinent Family History: none Social History: Denies: smoking Last Menstrual Period: now Now: No - iud Immunizations: other Reviewed Nursing Documentation: PMH: Agreed; PSxH: Agreed Nursing Documentation-PMH Hx Hypertension: No Hx Pacemaker: No Hx COPD: No - Bronchitis Hx Dialysis: No Review of Systems Eye: Denies: eye pain, blurred vision ENT: Denies: ear pain, nose congestion, throat swelling Respiratory: Denies: cough, shortness of breath Cardiovascular: Denies: chest pain, palpitations Gastrointestinal: Denies: abdominal pain, diarrhea, nausea, vomiting Musculoskeletal: Denies: back pain, joint pain Skin: Reports: rash Neurological: Denies: headache, numbness Endocrine: Denies: increased thirst, increased urine Hematologic/Lymphatic: Denies: easy bruising All Other Systems: negative except mentioned in HPI Physical Exam Vital Signs Date Time Temp Pulse Resp B/P (MAP) Pulse Ox O2 Delivery O2 Flow Rate FiO2 01/03/18 21:31 97.9 76 16 105/70 96 Room Air 97.9 vitals normal Sp02 EP Interpretation: reviewed, normal General Appearance: well appearing, no apparent distress, alert Head: normocephalic, atraumatic Eyes: bilateral eye PERRL, bilateral eye EOMI ENT: hearing grossly normal, normal pharynx Neck: full range of motion, supple, no meningismus Respiratory: chest non-tender, lungs clear, normal breath sounds Cardiovascular #1: regular rate, rhythm, no murmur Gastrointestinal: normal bowel sounds, non tender, no mass, no organomegaly, no bruit, non-distended Musculoskeletal: back normal, gait/station normal, normal range of motion, other - Lower extremities bilaterally: There is a psoriatic rash from lower thigh down to the ankle area. There is some ulceration and slight weeping. Pulse is normal. Psychiatric: mood/affect normal Skin: warm/dry Medical Decision Making Diagnostic Impression: Primary Impression: Psoriasis Additional Impression: Cellulitis Qualified Codes: L03.119 - Cellulitis of unspecified part of limb ER Course Patient with exacerbation of her psoriasis. We'll put her on steroid and antibiotics. No evidence of meningitis, sepsis, necrotizing fasciitis to name a few. We'll discharge home. Last Vital Signs Date Time Temp Pulse Resp B/P (MAP) Pulse Ox O2 Delivery O2 Flow Rate FiO2 01/03/18 22:11 98.2 76 16 105/70 96 Room Air 98.2 Status: improved Disposition: HOME, SELF-CARE Condition: Stable Scripts Clindamycin Hcl (CLINDAMYCIN HCL) 300 Mg Capsule 300 MG ORAL THREE TIMES A DAY, #21 CAP Prov: ASHLEY ROGER M.D. 01/03/18 Hydrocodone/Acetaminophen 5-325* (HYDROCODONE/ACETAMINOPHEN 5-325*) 1 Each Tablet 1 TAB ORAL Q6H PRN for For Pain, #15 TAB 0 Refills Prov: ASHLEY ROGER M.D. 01/03/18 Prednisone* (PREDNISONE*) 20 Mg Tablet 40 MG ORAL DAILY, #21 TAB Prov: ASHLEY ROGER M.D. 01/03/18 Additional Instructions: follow-up with your doctor within a week for recheck. Return if worse. ASHLEY ROGER M.D. Jan 03, 2018 22:51
[2018-01-03 23:00] VITALS: BP_SYST 105; BP_SYST 120; BP_DIAS 70; BP_DIAS 75
== END 2018-01-03 23:00 | disposition home or self-care (01) ==
LOC: EMR 21:52
DX: L40.9 Psoriasis, unspecified (principal)
CPT/HCPCS: 36415; 80048; 85025; 96365; 96375; 99284; J1100; J1885; S0077; 96374

== ENCOUNTER 2018-02-21 20:19 | Emergency (ER) | payer OTHER ==
[~2018-02-21] VITALS: Ht 160 cm; Wt 81.6 kg
[~2018-02-21 20:19] MED LIST changes: +AUGMENTIN; +BETAMETHASONE D15 GM TP; +CLINDAMYCIN HC300 MG ORAL; +MUPIROCIN22 GM TOPIC; +SORIATANE25 MG PO
[2018-02-21 20:39] VITALS: BP 133/73
[2018-02-21] MEDS ORDERED: EMLA 5gm tube TOPIC ONE (21:30)
[2018-02-21] MEDS ORDERED: BETAMETHASONE D15 GM TP (21:35)
[2018-02-21] MEDS ORDERED: GABAPENTIN300 MG ORAL (21:35)
[2018-02-21 22:02] VITALS: BP 0/0
--- NOTE | 2018-02-22 01:39 | Emergency Room Report ---
History of Present Illness General Chief Complaint: Skin Rash/Abscess Source: Medical Record Present Illness HPI 32-year-old female presents ED complaining of rash to her legs. Patient states that she has history of psoriasis and has had a recent exacerbation. States that she went [facility] and was recently started on some new topical prescriptions states that it caused some inflammation to her legs and she came to [facility] recently. Was prescribed some medications which she states are helping but states that she needs more medication. States that she has dermatology appointment in 2 days. Pain is burning, 6 out of 10, nonradiating. Denies fevers or chills. No other aggravating relieving factors. Denies any other associated symptoms Allergies: Coded Allergies: No Known Allergies (Unverified , 01/03/18) Patient History Past Medical History: none Past Surgical History: none Pertinent Family History: none Social History: Denies: smoking, alcohol use, drug use Last Menstrual Period: 02/21/18 Now: No Immunizations: UTD Reviewed Nursing Documentation: PMH: Agreed; PSxH: Agreed Nursing Documentation-PMH Hx Hypertension: No Hx Pacemaker: No Hx COPD: No - Bronchitis Hx Dialysis: No Review of Systems All Other Systems: negative except mentioned in HPI Physical Exam Vital Signs Date Time Temp Pulse Resp B/P (MAP) Pulse Ox O2 Delivery O2 Flow Rate FiO2 02/21/18 20:27 98.5 80 18 133/73 97 Room Air 98.4 Sp02 EP Interpretation: reviewed, normal General Appearance: no apparent distress, alert, GCS 15, non-toxic Head: normocephalic Eyes: bilateral eye normal inspection, bilateral eye PERRL ENT: normal ENT inspection Neck: normal inspection Respiratory: normal inspection Cardiovascular #1: normal inspection Gastrointestinal: normal inspection Rectal: deferred Genitourinary: no CVA tenderness Musculoskeletal: back normal, gait/station normal, normal range of motion Neurologic: alert, oriented x3, responsive, motor strength/tone normal, sensory intact, speech normal Psychiatric: judgement/insight normal, memory normal, mood/affect normal, no suicidal/homicidal ideation Skin: rash - erythemaouts plaques on bilateral lower extremities from knees extending distally to ankles, circumferential, no active draining, no crepitus, no bleeding, well defined borders, no blisters or vesicles, no central clearing , no skin peeling, no skin sloughing, other - extensive area of erythema to both LEs. Lymphatic: normal inspection Medical Decision Making Diagnostic Impression: Primary Impression: Psoriasis-eczema overlap condition ER Course Hospital Course 32-year-old female presents to ED with rash to legs Differential diagnoses include: Cellulitis, dermatitis, insect bite, abscess Clinical course Patient placed on stretcher. After initial history, physical exam reveals a young female in no acute distress. On exam there are extensive plaques noted to both legs, circumferential. No erythema or discharge. Consistent with psoriasis. On review of EMR, does appear improved compared to prior visits. Patient knowledge is some improvement We will apply lidocaine to the legs. We'll continue the betamethasone topical. I'll prescribe gabapentin for the pain. Patient scheduled to see [facility] in 2 days Diagnosis - psoriasis-ezcema stable and discharged to home with prescription for Gabapentin, Betamethasone. Instructed to followup with dermatology. Instructed return to ED if symptoms recur or worsen Last Vital Signs Date Time Temp Pulse Resp B/P (MAP) Pulse Ox O2 Delivery O2 Flow Rate FiO2 02/21/18 22:02 0/0 02/21/18 20:39 98.4 80 18 97 Room Air 98.4 Status: improved Disposition: HOME, SELF-CARE Condition: Stable Scripts Gabapentin* (GABAPENTIN*) 300 Mg Capsule 300 MG ORAL THREE TIMES A DAY, #20 CAP 0 Refills Prov: Alonso Geiger MD 02/21/18 Betamet Diprop/Prop Gly (BETAMETHASONE DP AUG 0.05% CRM) 15 Gm Cream..g. 15 GM TP BID, #15 GM Prov: Alonso Geiger MD 02/21/18 Referrals: [facility],REFERRING (PCP) Patient Instructions: Psoriasis, [id number] Alonso Geiger MD Feb 22, 2018 01:39
== END 2018-02-21 22:02 | disposition home or self-care (01) ==
LOC: EMR 21:17
DX: L40.9 Psoriasis, unspecified (principal); L30.9 Dermatitis, unspecified
CPT/HCPCS: 99284

== ENCOUNTER 2018-06-19 23:48 | Emergency (ER) | payer OTHER ==
[~2018-06-19] VITALS: Ht 157.5 cm; Wt 79.8 kg
[~2018-06-19 23:48] MED LIST changes: +GABAPENTIN300 MG ORAL
[2018-06-20] VITALS: BP 137/94
[2018-06-20] MEDS ORDERED: ALBUTEROL SULF8.5 GM INH (00:28)
[2018-06-20] MEDS ORDERED: PREDNISONE20 MG ORAL (00:28)
--- NOTE | 2018-06-20 00:28 | Emergency Room Report ---
History of Present Illness General Chief Complaint: Upper Respiratory Illness Source: Patient Present Illness HPI This a 32-year-old female with history of psoriasis. She also was recently diagnosed with adult-onset asthma. She presents with chief complaint of coughing congestion. Onset for last 2 days. No fever or chills. Coughing to the point of vomiting. Aristes short of breath. Worse with lying flat. Denies any other complaint. No sick contact. Allergies: Coded Allergies: No Known Allergies (Unverified , 01/03/18) Patient History Past Medical History: see triage record, old chart reviewed Past Surgical History: none Pertinent Family History: none Social History: Denies: smoking Last Menstrual Period: 06/13/18 Now: No : 3 Para: 3 Immunizations: other Reviewed Nursing Documentation: PMH: Agreed; PSxH: Agreed Nursing Documentation-PMH Past Medical History: No History, Except For Hx Hypertension: No Hx Pacemaker: No Hx COPD: No - Bronchitis Hx Dialysis: No Review of Systems Eye: Denies: eye pain, blurred vision ENT: Reports: nose congestion; Denies: ear pain, throat swelling Respiratory: Reports: cough, shortness of breath Cardiovascular: Denies: chest pain, palpitations Gastrointestinal: Denies: abdominal pain, diarrhea, nausea, vomiting Musculoskeletal: Denies: back pain, joint pain Skin: Denies: rash Neurological: Denies: headache, numbness Endocrine: Denies: increased thirst, increased urine Hematologic/Lymphatic: Denies: easy bruising All Other Systems: negative except mentioned in HPI Physical Exam Vital Signs Date Time Temp Pulse Resp B/P (MAP) Pulse Ox O2 Delivery O2 Flow Rate FiO2 06/19/18 23:52 98.1 94 16 137/94 97 Room Air vitals normal Sp02 EP Interpretation: reviewed, normal General Appearance: well appearing, no apparent distress, alert Head: normocephalic, atraumatic Eyes: bilateral eye PERRL, bilateral eye EOMI ENT: hearing grossly normal, normal pharynx Neck: full range of motion, supple, no meningismus Respiratory: chest non-tender, lungs clear, normal breath sounds Cardiovascular #1: regular rate, rhythm, no murmur Gastrointestinal: normal bowel sounds, non tender, no mass, no organomegaly, no bruit, non-distended Musculoskeletal: back normal, gait/station normal, normal range of motion Psychiatric: mood/affect normal Skin: warm/dry Medical Decision Making Diagnostic Impression: Primary Impression: Upper respiratory infection Qualified Codes: J06.9 - Acute upper respiratory infection, unspecified ER Course Patient with an upper respiratory infection. This is viral in nature. Because of her history of asthma, we'll prescribe prednisone. No wheezing currently. No evidence of bacterial infection. We'll discharge home. Last Vital Signs Date Time Temp Pulse Resp B/P (MAP) Pulse Ox O2 Delivery O2 Flow Rate FiO2 06/19/18 23:52 98.1 94 16 137/94 97 Room Air Status: unchanged Disposition: HOME, SELF-CARE Condition: Stable Scripts Prednisone* (PREDNISONE*) 20 Mg Tablet 40 MG ORAL DAILY, #10 TAB Prov: Mao Newby MD 06/20/18 Albuterol Sulfate* (ALBUTEROL SULFATE MDI*) 8.5 Gm Hfa.aer.ad 2 PUFF INH Q4H PRN for cough/wheezing, #1 EA 0 Refills Prov: Mao Newby MD 06/20/18 Patient Instructions: Upper Respiratory Infection, Adult Additional Instructions: Follow-up with your DrMeliton in 2-3 days if not better. Return if worse. Mao Newby MD Jun 20, 2018 00:28
[2018-06-20 00:30] VITALS: BP 137/94
[2018-06-21] MEDS ORDERED: IBUPROFEN600 MG ORAL (21:07)
[2018-06-21] MEDS ORDERED: HYDROCODON-ACE1 EA15 ORAL (21:07)
== END 2018-06-20 00:30 | disposition home or self-care (01) ==
LOC: EMR 23:59
DX: J06.9 Acute upper respiratory infection, unspecified (principal); B34.9 Viral infection, unspecified; R07.9 Chest pain, unspecified; M54.9 Dorsalgia, unspecified; J45.909 Unspecified asthma, uncomplicated; L40.9 Psoriasis, unspecified
CPT/HCPCS: 99282

== ENCOUNTER 2018-06-21 19:32 | Emergency (ER) | payer OTHER ==
[~2018-06-21] VITALS: Ht 157.5 cm; Wt 79.8 kg
--- NOTE | 2018-06-21 19:50 | Emergency Room Report ---
History of Present Illness General Chief Complaint: Abdominal Pain Source: Patient Present Illness HPI Is a 32-year-old female with a history of psoriasis and kidney stone the past. She presents with chief complaint of left lower quadrant pain. Onset was around this afternoon. Sharp in nature. Radiating up the flank. No fever chills area has nausea but no vomiting or diarrhea. Pain is 9 out of 10. Denies any urinary complaint. No hematuria. Allergies: Coded Allergies: No Known Allergies (Unverified , 01/03/18) Patient History Past Medical History: see triage record, old chart reviewed Past Surgical History: other Pertinent Family History: none Social History: Denies: smoking Now: No Immunizations: other Reviewed Nursing Documentation: PMH: Agreed; PSxH: Agreed Nursing Documentation-PMH Past Medical History: No History, Except For Hx Hypertension: No Hx Pacemaker: No Hx COPD: No - Bronchitis Hx Dialysis: No Review of Systems Eye: Denies: eye pain, blurred vision ENT: Denies: ear pain, nose congestion, throat swelling Respiratory: Denies: cough, shortness of breath Cardiovascular: Denies: chest pain, palpitations Gastrointestinal: Reports: abdominal pain; Denies: diarrhea, nausea, vomiting Musculoskeletal: Denies: back pain, joint pain Skin: Denies: rash Neurological: Denies: headache, numbness Endocrine: Denies: increased thirst, increased urine Hematologic/Lymphatic: Denies: easy bruising All Other Systems: negative except mentioned in HPI Physical Exam Vital Signs Date Time Temp Pulse Resp B/P (MAP) Pulse Ox O2 Delivery O2 Flow Rate FiO2 06/21/18 19:38 97.7 89 17 119/66 97 Room Air vitals normal Sp02 EP Interpretation: reviewed, normal General Appearance: well appearing, no apparent distress, alert Head: normocephalic, atraumatic Eyes: bilateral eye PERRL, bilateral eye EOMI ENT: hearing grossly normal, normal pharynx Neck: full range of motion, supple, no meningismus Respiratory: chest non-tender, lungs clear, normal breath sounds Cardiovascular #1: regular rate, rhythm, no murmur Gastrointestinal: normal bowel sounds, no mass, no organomegaly, no bruit, non- distended, tenderness - Mild, left lower quadrant Musculoskeletal: back normal, gait/station normal, normal range of motion Psychiatric: mood/affect normal Skin: warm/dry Medical Decision Making Diagnostic Impression: Primary Impression: Abdominal pain Qualified Codes: R10.32 - Left lower quadrant pain ER Course Issue with left flank and left lower quadrant abdominal pain. Labs and CT unremarkable. Urine negative. CT scan showed a tiny nonobstructing right kidney stone. This is not the cause of the pain. Patient better now. We'll discharge home. No evidence of acute abdomen or obstruction. No infection. Lab Results Impression labs normal CT/MRI/US Diagnostic Results CT/MRI/US Diagnostic Results : Imaging Test Ordered: CT abdomen and pelvis Impression unremarkable per radiologist Last Vital Signs Date Time Temp Pulse Resp B/P (MAP) Pulse Ox O2 Delivery O2 Flow Rate FiO2 06/21/18 19:38 97.7 89 17 119/66 97 Room Air Status: improved Disposition: HOME, SELF-CARE Condition: Stable Scripts Ibuprofen* (MOTRIN*) 600 Mg Tablet 600 MG ORAL THREE TIMES A DAY, #30 TAB 0 Refills Prov: Mao Newby MD 06/21/18 Hydrocodone/Acetaminophen 5-325* (HYDROCODONE/ACETAMINOPHEN 5-325*) 1 Each Tablet 1 TAB ORAL Q6H PRN for For Pain, #10 TAB 0 Refills Prov: Mao Newby MD 06/21/18 Patient Instructions: Abdominal Pain, Adult Additional Instructions: Follow-up with your doctor in 2-3 days if not better. Return if worse. Mao Newby MD Jun 21, 2018 19:50
[2018-06-21] MEDS ORDERED: Morphine Sulfate 4mg/ml Inj (IV/IM USE ONLY) IVP ONE (20:00)
[2018-06-21 20:10] VITALS: BP 113/54
[2018-06-21 20:13] LABS: BASOPHILS % (AUTO) 0.6 % (0.0-2.0); EOSINOPHILS % (AUTO) 0.1 % (0.0-3.0); HEMATOCRIT 33.7 % (37.0-47.0); MEAN CORPUSCULAR VOLUME 94 FL (80-99); MONOCYTES % (AUTO) 4.7 % (1.0-10.0); NEUTROPHILS % (AUTO) 79.6 % (45.0-75.0); PLATELET COUNT 239 K/UL (150-450); RED BLOOD COUNT 3.57 M/UL (4.20-5.40); RED CELL DISTRIBUTION WIDTH 11.1 % (11.6-14.8); WHITE BLOOD COUNT 10.5 K/UL (4.8-10.8)
[2018-06-21 20:17] LABS: APPEARANCE,URINE CLEAR; BILIRUBIN, URINE NEGATIVE (NEGATIVE); GLUCOSE, URINE (UA) NEGATIVE (NEGATIVE); KETONES,URINE NEGATIVE (NEGATIVE); LEUKOCYTE ESTERASE ,URINE 1+ (NEGATIVE); NITRITE,URINE NEGATIVE (NEGATIVE); PH,URINE 7 (4.5-8.0); PROTEIN,URINE NEGATIVE (NEGATIVE); UROBILINOGEN,URINE NORMAL MG/DL (0.0-1.0)
[2018-06-21 20:21] LABS: COLOR,URINE YELLOW
[2018-06-21 20:31] LABS: ANION GAP 11 mmol/L (5-15); BLOOD UREA NITROGEN 12 mg/dL (7-18); CALCIUM 9.3 MG/DL (8.5-10.1); CARBON DIOXIDE 23 MMOL/L (21-32); CHLORIDE 104 MMOL/L (98-107); CREATININE 0.6 MG/DL (0.55-1.30); POTASSIUM 3.8 MMOL/L (3.5-5.1); SODIUM 137 MMOL/L (136-145)
--- NOTE | 2018-06-21 21:02 | Diagnostic Imaging Report ---
EXAM: CT Abdomen and Pelvis Without Intravenous Contrast CLINICAL HISTORY: ABD PAIN TECHNIQUE: Axial computed tomography images of the abdomen and pelvis without intravenous contrast. CTDI is 0.15, 16.14 mGy and DLP is 85 8 mGy-cm. One or more of the following dose reduction techniques were used: automated exposure control, adjustment of the mA and/or kV according to patient size, use of iterative reconstruction technique. COMPARISON: No relevant prior studies available. FINDINGS: Lung bases: Bibasilar atelectasis. ABDOMEN: Liver: Unremarkable. Gallbladder and bile ducts: Unremarkable. Pancreas: Unremarkable. Spleen: Unremarkable. Adrenals: Unremarkable. Kidneys and ureters: Nonobstructing calculus within the right kidney. No hydronephrosis. Stomach and bowel: Unremarkable. PELVIS: Appendix: Appendix is unremarkable. Bladder: Unremarkable. Reproductive: IUD within endometrium. ABDOMEN and PELVIS: Intraperitoneal space: Unremarkable. Bones/joints: No acute fracture. No dislocation. Soft tissues: Unremarkable. Vasculature: Unremarkable. No abdominal aortic aneurysm. Lymph nodes: Unremarkable. IMPRESSION: No acute findings.
[2018-06-21] MEDS ORDERED: IBUPROFEN600 MG ORAL (21:07)
[2018-06-21] MEDS ORDERED: HYDROCODON-ACE1 EA15 ORAL (21:07)
[2018-06-21 21:19] VITALS: BP 113/54
== END 2018-06-21 21:19 | disposition home or self-care (01) ==
LOC: EMR 20:42
DX: R10.32 Left lower quadrant pain (principal)
CPT/HCPCS: 36415; 74176; 80048; 81003; 81025; 85025; 96374; 96375; 99283; J2270; J2405

== ENCOUNTER 2018-09-22 19:54 | Emergency (ER) | payer OTHER ==
[~2018-09-22] VITALS: Ht 157.5 cm; Wt 79.8 kg
[2018-09-22] MEDS ORDERED: DAPSONE100 MG ORAL (20:02)
[2018-09-22 20:13] VITALS: BP 107/60
--- NOTE | 2018-09-22 20:13 | NUR ---
ED Nurse Note: Patient walk in c/o cough and sore throat for 3 days.
--- NOTE | 2018-09-22 20:14 | NUR ---
ED Nurse Note: PER PT SHE HAS HISTROY OF BRONCHITIS
[2018-09-22] MEDS ORDERED: Ipratropium 0.02% Inh Soln 2.5ml UD HHN ONE (20:45)
[2018-09-22] MEDS ORDERED: Albuterol ud Inhalation HHN ONE (20:45)
--- NOTE | 2018-09-22 21:07 | Emergency Room Report ---
History of Present Illness General Chief Complaint: Upper Respiratory Illness Source: Patient Present Illness HPI Patient presents with 2 weeks of cough. She's been diagnosed in the past with asthma. She took prednisone the past. She coughs to the point where she feels about the throw up but hasn't. Not worst attack. No documented fevers. 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 No NVD, dysuria, calf pain, edema. She recently had her period and doesn't believe she is . Child with otitis. 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 Last Menstrual Period: 09/17/2018 Now: No Reviewed Nursing Documentation: PMH: Agreed; PSxH: Agreed Nursing Documentation-PMH Hx Hypertension: No Hx Pacemaker: No Hx Asthma: Yes Hx COPD: No - Bronchitis Hx Dialysis: No Physical Exam Vital Signs Date Time Temp Pulse Resp B/P (MAP) Pulse Ox O2 Delivery O2 Flow Rate FiO2 09/22/18 19:59 97.9 76 18 107/60 94 Room Air 09/22/18 20:46 21 Sp02 EP Interpretation: reviewed, abnormal - interpreted as slightly low by me General Appearance: well appearing, no apparent distress Head: normocephalic, atraumatic Eyes: bilateral eye normal inspection, bilateral eye PERRL ENT: hearing grossly normal, normal voice, moist mucus membranes, pharyngeal erythema Neck: full range of motion, supple Respiratory: no respiratory distress, speaking full sentences, wheezing - post tussive Cardiovascular #1: regular rate, rhythm Cardiovascular #2: 2+ radial (L) Gastrointestinal: normal inspection Musculoskeletal: digits/nails normal, gait/station normal, normal range of motion, no calf tenderness Neurologic: alert, oriented x3, normal gait, grossly normal Psychiatric: mood/affect normal Skin: no rash Medical Decision Making Diagnostic Impression: Primary Impression: Asthmatic bronchitis Qualified Codes: J45.31 - Mild persistent asthma with (acute) exacerbation Additional Impression: Upper respiratory infection Qualified Codes: J06.9 - Acute upper respiratory infection, unspecified ER Course Patient presents with URI and wheezing. DDx: asthma exacerbation, bronchitis, viral syndrome, amongst others. Exam against PE. As no fever, doubt influenza. Treatment with prednisone and breathing treatment. Imaging not indicated. Improved with treatment. Discussed treatment plan. Patient stable for outpatient observation and treatment. States not need note for work. Last Vital Signs Date Time Temp Pulse Resp B/P (MAP) Pulse Ox O2 Delivery O2 Flow Rate FiO2 09/22/18 21:16 97.9 76 20 107/60 98 Room Air 21 Status: improved Disposition: HOME, SELF-CARE Condition: Improved Scripts Dextromethorphan Hb/Doxylamine (ROBITUSSIN NIGHTTIME COUGH DM) 237 Ml Liquid 55 ML PO Q6HR, #90 ML Prov: Carmelo Rich MD 09/22/18 Albuterol Sulfate* (ALBUTEROL SULFATE MDI*) 8.5 Gm Hfa.aer.ad 2 PUFF INH Q6H, #1 EA 0 Refills Prov: Carmelo Rich MD 09/22/18 Prednisone* (PREDNISONE*) 20 Mg Tablet 40 MG ORAL DAILY, #10 TAB Prov: Carmelo Rich MD 09/22/18 Carmelo Rich MD Sep 22, 2018 21:07
[2018-09-22] MEDS ORDERED: ROBITUSSIN NIG237 ML PO (21:10)
[2018-09-22] MEDS ORDERED: PREDNISONE20 MG ORAL (21:10)
[2018-09-22] MEDS ORDERED: ALBUTEROL SULF8.5 GM INH (21:10)
[2018-09-22 21:16] VITALS: BP 107/60
--- NOTE | 2018-09-22 21:16 | NUR ---
ER NURSE NOTE: Patient is cleared to be discharged per ERMD, pt is aox4, on room air, with stable vital signs. pt was given dc and prescription instructions, pt was able to verbalize understanding, pt id band. pt is able to ambulate with steady gait. pt took all belongings.ED
== END 2018-09-22 21:16 | disposition home or self-care (01) ==
LOC: EMR 20:52
DX: J45.31 Mild persistent asthma with (acute) exacerbation (principal); J06.9 Acute upper respiratory infection, unspecified
CPT/HCPCS: 94640; 94664; 99283; J7512

== ENCOUNTER 2019-01-21 10:55 | Emergency (ER) | payer OTHER ==
[~2019-01-21] VITALS: Ht 160 cm; Wt 77.1 kg
[~2019-01-21 10:55] MED LIST changes: +DAPSONE100 MG ORAL; +ROBITUSSIN NIG237 ML PO
[2019-01-21 11:10] VITALS: BP 111/67
--- NOTE | 2019-01-21 11:12 | NUR ---
ED Nurse Note: pt walked in due to sore throat, cold congestions and bilateral earache started 3 days ago. pt stated hse has history of asthma, lung is clear. pt has non produtctive cough, denies taking medication. ermd on bedside. will continue to monitor.
[2019-01-21 11:33] VITALS: BP 111/67
--- NOTE | 2019-01-21 11:33 | NUR ---
ER DISCHARGE NOTE: Patient is cleared to be discharged per ERMD, pt is aox4, on room air, with stable vital signs. pt was given dc and prescription instructions, pt was able to verbalize understanding, pt id band removed without complications. pt is able to ambulate with steady gait. pt took all belongings.
--- NOTE | 2019-01-21 13:33 | Emergency Room Report ---
History of Present Illness General Chief Complaint: Sore Throat Source: Patient Present Illness HPI 33-year-old female presents ED for evaluation. Complaining of earache, sore throat, congestion for the last 3 days. Pain is dull, 5 out of 10, nonradiating. Denies fevers or chills. Denies sick contacts or recent travel. No other aggravating relieving factors. Denies any other associated symptoms Allergies: Coded Allergies: No Known Allergies (Unverified , 01/03/18) Patient History Past Medical History: asthma Past Surgical History: none Pertinent Family History: none Social History: Denies: smoking, alcohol use, drug use Last Menstrual Period: 12/30/18 Now: No : 3 Para: 3 Immunizations: UTD Reviewed Nursing Documentation: PMH: Agreed; PSxH: Agreed Nursing Documentation-PMH Past Medical History: No History, Except For Hx Cardiac Problems: No - kidney stone, broncititis Hx Hypertension: No Hx Pacemaker: No Hx Asthma: Yes Hx COPD: No - Bronchitis Hx Dialysis: No Review of Systems All Other Systems: negative except mentioned in HPI Physical Exam Vital Signs Date Time Temp Pulse Resp B/P (MAP) Pulse Ox O2 Delivery O2 Flow Rate FiO2 01/21/19 10:58 98.8 73 16 111/67 (82) 93 Room Air Sp02 EP Interpretation: reviewed, normal General Appearance: no apparent distress, alert, GCS 15, non-toxic Head: normocephalic, atraumatic Eyes: bilateral eye normal inspection, bilateral eye PERRL ENT: hearing grossly normal, normal pharynx, no angioedema, normal voice, other - bilateral TM poor light reflex Neck: full range of motion, supple, no meningismus, supple/symm/no masses Respiratory: chest non-tender, lungs clear, normal breath sounds, speaking full sentences Cardiovascular #1: regular rate, rhythm, no edema Cardiovascular #2: 2+ carotid (R), 2+ carotid (L), 2+ radial (R), 2+ radial (L) , 2+ dorsalis pedis (R), 2+ dorsalis pedis (L) Gastrointestinal: normal bowel sounds, non tender, soft, non-distended, no guarding, no rebound Rectal: deferred Genitourinary: normal inspection, no CVA tenderness Musculoskeletal: back normal, gait/station normal, normal range of motion, non- tender Neurologic: alert, oriented x3, responsive, motor strength/tone normal, sensory intact, speech normal Psychiatric: judgement/insight normal, memory normal, mood/affect normal, no suicidal/homicidal ideation Reflexes: 3+ bicep (R), 3+ bicep (L), 3+ tricep (R), 3+ tricep (L), 3+ knee (R) , 3+ knee (L) Skin: normal color, no rash, warm/dry, well hydrated Lymphatic: no adenopathy Medical Decision Making Diagnostic Impression: Primary Impression: Upper respiratory infection Qualified Codes: J06.9 - Acute upper respiratory infection, unspecified ER Course Hospital Course 33year-old female presents to ED complaining of cough, ear ache, congestion Differential diagnoses include: URI, pharyngitis, otitis media, asthma Clinical course Patient placed on stretcher. After initial history, physical exam reveals a young male in no acute distress. Bilateral TM poor light reflex. No pharyngeal erythema. No tonsillar exudates. No lymphadenopathy. lungs clear. abdomen soft. Given constellation of symptoms likely upper respiratory infection. Viral. Course is self-limited. Recommend symptomatic therapy like [id number] multisymptom medications like DayQuil/NyQuil. Safe for discharge for close outpatient follow-up Diagnosis - URI Stable and discharged home. Instructed to followup with PMD. Return to ED if symptoms recur or worsen Last Vital Signs Date Time Temp Pulse Resp B/P (MAP) Pulse Ox O2 Delivery O2 Flow Rate FiO2 01/21/19 11:33 98.8 73 16 111/67 93 Room Air Status: improved Disposition: HOME, SELF-CARE Condition: Stable Referrals: [facility]REFERRING (PCP) Patient Instructions: Upper Respiratory Infection, Adult, [id number] Additional Instructions: take multisymptom medication like dayquil/nyquil, tylenol cold and flu, etc Alonso Geiger MD Jan 21, 2019 13:33
== END 2019-01-21 11:33 | disposition home or self-care (01) ==
LOC: EMR 11:15
DX: J06.9 Acute upper respiratory infection, unspecified (principal); Z87.442 Personal history of urinary calculi
CPT/HCPCS: 99282

== ENCOUNTER 2019-03-31 07:57 | Emergency (ER) | payer OTHER ==
[~2019-03-31] VITALS: Ht 160 cm; Wt 77.1 kg
[2019-03-31] MEDS ORDERED: VENTOLIN HFA18 GM INH (08:17)
[2019-03-31 08:20] VITALS: BP 114/69
--- NOTE | 2019-03-31 08:22 | NUR ---
ED Nurse Note: Pt walked in due to abd. cramping x 2 weeks and worse after eating. Also with liquid diarrhea and nausea x 2 days. Denies fever and vomiting. AAO x4, ambulatory with unlabored breathing. Calm and speaks in clear sentences.
[2019-03-31] MEDS ORDERED: Dicyclomine HCl 10mg/5ml oral soln ORAL ONE (08:45)
[2019-03-31] MEDS ORDERED: Mylanta II UD 30ml ORAL ONE (08:45)
[2019-03-31] MEDS ORDERED: Lidocaine 2% Visc 15ml soln ORAL ONE (08:45)
[2019-03-31 09:05] LABS: APPEARANCE,URINE CLEAR; BASOPHILS % (AUTO) 0.8 % (0.0-2.0); BILIRUBIN, URINE NEGATIVE (NEGATIVE); EOSINOPHILS % (AUTO) 2.5 % (0.0-3.0); GLUCOSE, URINE (UA) NEGATIVE (NEGATIVE); HEMATOCRIT 33.2 % (37.0-47.0); HEMOGLOBIN 10.9 G/DL (12.0-16.0); KETONES,URINE NEGATIVE (NEGATIVE); LEUKOCYTE ESTERASE ,URINE 2+ (NEGATIVE); LYMPHOCYTES % (AUTO) 25.8 % (20.0-45.0); MEAN CORPUSCULAR VOLUME 95 FL (80-99); MONOCYTES % (AUTO) 13.7 % (1.0-10.0); NEUTROPHILS % (AUTO) 57.1 % (45.0-75.0); NITRITE,URINE POSITIVE (NEGATIVE); PH,URINE 5 (4.5-8.0); PLATELET COUNT 219 K/UL (150-450); PROTEIN,URINE 1+ (NEGATIVE); RED BLOOD COUNT 3.48 M/UL (4.20-5.40); RED CELL DISTRIBUTION WIDTH 12.4 % (11.6-14.8); UROBILINOGEN,URINE NORMAL MG/DL (0.0-1.0); WHITE BLOOD COUNT 7.6 K/UL (4.8-10.8)
[2019-03-31 09:14] LABS: COLOR,URINE YELLOW
[2019-03-31 09:17] LABS: ANION GAP 9 mmol/L (5-15); BLOOD UREA NITROGEN 13 mg/dL (7-18); CALCIUM 8.9 MG/DL (8.5-10.1); CARBON DIOXIDE 26 MMOL/L (21-32); CHLORIDE 109 MMOL/L (98-107); CREATININE 0.6 MG/DL (0.55-1.30); POTASSIUM 3.7 MMOL/L (3.5-5.1); SODIUM 143 MMOL/L (136-145)
[2019-03-31 09:21] LABS: ALANINE AMINOTRANSFERASE 28 U/L (12-78); ALBUMIN 3.7 G/DL (3.4-5.0); ALBUMIN/GLOBULIN RATIO 1.1 (1.0-2.7); ALKALINE PHOSPHATASE 78 U/L (46-116); ASPARTATE AMINO TRANSFERASE 18 U/L (15-37)
[2019-03-31] MEDS ORDERED: Ketorolac 30mg Inj IV ONE (10:00)
[2019-03-31] MEDS ORDERED: Morphine Sulfate 4mg/ml Inj (IV USE ONLY) IVP ONE (10:15)
[2019-03-31 10:17] VITALS: BP 98/57
--- NOTE | 2019-03-31 10:25 | NUR ---
ED Nurse Note: Pt reports lesser pain at this time after pain medications. Pt is calmer and VSS.
[2019-03-31] MEDS ORDERED: RANITIDINE HCL150 MG ORAL (10:43)
[2019-03-31] MEDS ORDERED: DICYCLOMINE HCL10 MG ORAL (10:43)
[2019-03-31] MEDS ORDERED: ONDANSETRON ODT4 MG BC (10:43)
[2019-03-31] MEDS ORDERED: CEPHALEXIN500 MG ORAL (10:43)
[2019-03-31 10:48] VITALS: BP 95/57
--- NOTE | 2019-03-31 10:48 | NUR ---
ER DISCHARGE NOTE: Patient is cleared to be discharged per ERMD, pt is aox4, on room air, with stable vital signs. pt was given dc and prescription instructions, pt was able to verbalize understanding, pt id band and iv site removed without complications. pt is able to ambulate with steady gait. pt took all belongings and left with her family member.
--- NOTE | 2019-03-31 11:16 | Emergency Room Report ---
History of Present Illness General Chief Complaint: Abdominal Pain Source: Patient Present Illness HPI 33-year-old female presents ED for evaluation. Complaining of abdominal pain with vomiting and diarrhea started 2 days ago. Pain is cramping, 7 out of 10, nonradiating. Denies fevers or chills. Denies chest pain or shortness of breath. Denies sick contacts or recent travel. Denies recent antibiotic use. No other aggravating relieving factors. Denies any other associated symptoms Allergies: Uncoded Allergies: JACKFRUIT (Allergy, Unknown, 03/31/19) Patient History Past Medical History: asthma Past Surgical History: none Pertinent Family History: none Social History: Denies: smoking, alcohol use, drug use Last Menstrual Period: 02/16/2019 Immunizations: UTD Reviewed Nursing Documentation: PMH: Agreed; PSxH: Agreed Nursing Documentation-PMH Past Medical History: No History, Except For Hx Cardiac Problems: No - Psoriasis Hx Hypertension: No Hx Pacemaker: No Hx Asthma: Yes Hx COPD: No - Bronchitis Hx Diabetes: No - Kidney stones Hx Cancer: No Hx Gastrointestinal Problems: No - GERD Hx Dialysis: No History Of Psychiatric Problem: No Hx Neurological Problems: No Hx Cerebrovascular Accident: No Hx Seizures: No Review of Systems All Other Systems: negative except mentioned in HPI Physical Exam Vital Signs Date Time Temp Pulse Resp B/P (MAP) Pulse Ox O2 Delivery O2 Flow Rate FiO2 03/31/19 08:10 97.9 69 18 100/55 (70) 92 Room Air Sp02 EP Interpretation: reviewed, normal General Appearance: no apparent distress, alert, GCS 15, non-toxic Head: normocephalic, atraumatic Eyes: bilateral eye normal inspection, bilateral eye PERRL ENT: hearing grossly normal, normal pharynx, no angioedema, normal voice Neck: full range of motion, supple/symm/no masses Respiratory: chest non-tender, lungs clear, normal breath sounds, speaking full sentences Cardiovascular #1: regular rate, rhythm, no edema Cardiovascular #2: 2+ carotid (R), 2+ carotid (L), 2+ radial (R), 2+ radial (L) , 2+ dorsalis pedis (R), 2+ dorsalis pedis (L) Gastrointestinal: normal bowel sounds, soft, non-distended, no guarding, no rebound, tenderness Rectal: deferred Genitourinary: normal inspection, no CVA tenderness Musculoskeletal: back normal, gait/station normal, normal range of motion, non- tender Neurologic: alert, oriented x3, responsive, motor strength/tone normal, sensory intact, speech normal Psychiatric: judgement/insight normal, memory normal, mood/affect normal, no suicidal/homicidal ideation Reflexes: 3+ bicep (R), 3+ bicep (L), 3+ tricep (R), 3+ tricep (L), 3+ knee (R) , 3+ knee (L) Lymphatic: no adenopathy Medical Decision Making Diagnostic Impression: Primary Impression: UTI (urinary tract infection) Qualified Codes: N39.0 - Urinary tract infection, site not specified Additional Impression: Gastroenteritis ER Course Hospital Course 33-year-old F presents to ED with cramping abdominal pain with vomiting, diarrhea differential diagnosis: gastritis, SBO, cholecystits, gastroenteritis Clinical course Patient placed on stretcher. On front desk monitor. After initial history and physical I ordered labs, IV fluids, zofran, pepcid and GI cocktail Labs - no leukocytosis, electrolytes ok, LFTs normal, UA + bacteria Upon reassessment, patient states pain has improved. findings consistent with gastroenteritis. It is soft. generalized periumbilical pain. No guarding or rebound. I do not suspect acute abdomen. Safe for discharge for close outpatient follow-up. States she has a PMD I feel this is a highly complex case requiring extensive working including EKG/ Rhythm strip, Xray/CT/US, Blood/urine lab work, repeat exams while in ED, and administration of strong opiates/narcotics for pain control, admission to hospital or close patient follow up. Diagnosis - gastroenteritis, UTI Stable and discharged to home with prescriptions for Zantac, zofran, bentyl, keflex. Followup with PMD. Return to ED if symptoms recur or worsen Labs Test 03/31/19 08:10 White Blood Count 7.6 K/UL (4.8-10.8) Red Blood Count 3.48 M/UL (4.20-5.40) Hemoglobin 10.9 G/DL (12.0-16.0) Hematocrit 33.2 % (37.0-47.0) Mean Corpuscular Volume 95 FL (80-99) Mean Corpuscular Hemoglobin 31.3 PG (27.0-31.0) Mean Corpuscular Hemoglobin Concent 32.7 G/DL (32.0-36.0) Red Cell Distribution Width 12.4 % (11.6-14.8) Platelet Count 219 K/UL (150-450) Mean Platelet Volume 8.0 FL (6.5-10.1) Neutrophils (%) (Auto) 57.1 % (45.0-75.0) Lymphocytes (%) (Auto) 25.8 % (20.0-45.0) Monocytes (%) (Auto) 13.7 % (1.0-10.0) Eosinophils (%) (Auto) 2.5 % (0.0-3.0) Basophils (%) (Auto) 0.8 % (0.0-2.0) Urine Color Yellow Urine Appearance Clear Urine pH 5 (4.5-8.0) Urine Specific Check 1.025 (1.005-1.035) Urine Protein 1+ (NEGATIVE) Urine Glucose (UA) Negative (NEGATIVE) Urine Ketones Negative (NEGATIVE) Urine Blood Negative (NEGATIVE) Urine Nitrite Positive (NEGATIVE) Urine Bilirubin Negative (NEGATIVE) Urine Urobilinogen Normal MG/DL (0.0-1.0) Urine Leukocyte Esterase 2+ (NEGATIVE) Urine RBC 0-2 /HPF (0 - 2) Urine WBC 2-4 /HPF (0 - 2) Urine Squamous Epithelial Cells Few /LPF (NONE/OCC) Urine Bacteria Moderate /HPF (NONE) Urine HCG, Qualitative Negative (NEGATIVE) Sodium Level 143 MMOL/L (136-145) Potassium Level 3.7 MMOL/L (3.5-5.1) Chloride Level 109 MMOL/L (98-107) Carbon Dioxide Level 26 MMOL/L (21-32) Anion Gap 9 mmol/L (5-15) Blood Urea Nitrogen 13 mg/dL (7-18) Creatinine 0.6 MG/DL (0.55-1.30) Estimat Glomerular Filtration Rate > 60 mL/min (>60) Glucose Level 92 MG/DL (74-106) Calcium Level 8.9 MG/DL (8.5-10.1) Total Bilirubin 1.0 MG/DL (0.2-1.0) Aspartate Amino Transf (AST/SGOT) 18 U/L (15-37) Alanine Aminotransferase (ALT/SGPT) 28 U/L (12-78) Alkaline Phosphatase 78 U/L (46-116) Total Protein 7.2 G/DL (6.4-8.2) Albumin 3.7 G/DL (3.4-5.0) Globulin 3.5 g/dL Albumin/Globulin Ratio 1.1 (1.0-2.7) Lipase 58 U/L (73-393) Last Vital Signs Date Time Temp Pulse Resp B/P (MAP) Pulse Ox O2 Delivery O2 Flow Rate FiO2 03/31/19 10:48 97.5 65 20 95/57 96 Room Air Status: improved Disposition: HOME, SELF-CARE Condition: Stable Scripts Cephalexin* (KEFLEX*) 500 Mg Capsule 500 MG ORAL EVERY 6 HOURS for 7 Days, CAP Prov: Alonso Geiger MD 03/31/19 Dicyclomine Hcl* (DICYCLOMINE HCL*) 10 Mg Capsule 10 MG ORAL QID, #20 CAP Prov: Alonso Geiger MD 03/31/19 Ranitidine Hcl* (ZANTAC*) 150 Mg Tablet 150 MG ORAL TWICE A DAY, #30 TAB Prov: Alonso Geiger MD 03/31/19 Ondansetron Odt* (ZOFRAN ODT*) 4 Mg Tab.rapdis 4 MG BC EVERY 6 HOURS PRN for Nausea & Vomiting, #20 TAB 0 Refills Prov: Alonso Geiger MD 03/31/19 Patient Instructions: Viral Gastroenteritis, Adult, [id number] Alonso Geiger MD Mar 31, 2019 11:16
== END 2019-03-31 10:48 | disposition home or self-care (01) ==
LOC: EMR 08:30
DX: N39.0 Urinary tract infection, site not specified (principal); K52.9 Noninfective gastroenteritis and colitis, unspecified; Z91.018 Allergy to other foods; J45.909 Unspecified asthma, uncomplicated; K21.9 Gastro-esophageal reflux disease without esophagitis; Z87.442 Personal history of urinary calculi
CPT/HCPCS: 36415; 80053; 81003; 81025; 83690; 85025; 87086; 87181; 96361; 96374; 96375; 99284; J1885; J2270; J2405; S0028

== ENCOUNTER 2019-06-13 16:44 | Emergency (ER) | payer OTHER ==
[~2019-06-13] VITALS: Ht 160 cm; Wt 77.1 kg
[~2019-06-13 16:44] MED LIST changes: +DICYCLOMINE HCL10 MG ORAL; +HUMIRA PSO40 MG/0.8 SQ; +NITROFURANTOIN100 M2 ORAL; +ONDANSETRON ODT4 MG BC; +RANITIDINE HCL150 MG ORAL; +VENTOLIN HFA18 GM INH
[2019-06-13 17:00] VITALS: BP 108/63
--- NOTE | 2019-06-13 17:00 | NUR ---
ED Nurse Note: Patient walked in to ER due to upper abdominal pain with nausea. Denies vomiting. Afebrile. Pt was seen 2 hrs ago but had to leave and sign AMA. No SOB. VSS.
--- NOTE | 2019-06-13 17:35 | NUR ---
ED Nurse Note: ERPA at bedside.
--- NOTE | 2019-06-13 18:02 | NUR ---
ED Nurse Note: IV line established. Blood collected and sent to lab.
[2019-06-13 18:15] LABS: BASOPHILS % (AUTO) 1.3 % (0.0-2.0); EOSINOPHILS % (AUTO) 1.8 % (0.0-3.0); HEMATOCRIT 37.8 % (37.0-47.0); HEMOGLOBIN 13.2 G/DL (12.0-16.0); LYMPHOCYTES % (AUTO) 22.9 % (20.0-45.0); MEAN CORPUSCULAR VOLUME 88 FL (80-99); MONOCYTES % (AUTO) 8.3 % (1.0-10.0); NEUTROPHILS % (AUTO) 65.7 % (45.0-75.0); PLATELET COUNT 209 K/UL (150-450); RED BLOOD COUNT 4.29 M/UL (4.20-5.40); RED CELL DISTRIBUTION WIDTH 10.2 % (11.6-14.8); WHITE BLOOD COUNT 8.8 K/UL (4.8-10.8)
[2019-06-13 18:24] LABS: ANION GAP 4 mmol/L (5-15); BLOOD UREA NITROGEN 14 mg/dL (7-18); CALCIUM 9.1 MG/DL (8.5-10.1); CARBON DIOXIDE 31 MMOL/L (21-32); CHLORIDE 100 MMOL/L (98-107); CREATININE 0.7 MG/DL (0.55-1.30); POTASSIUM 3.9 MMOL/L (3.5-5.1); SODIUM 135 MMOL/L (136-145)
[2019-06-13 18:30] LABS: ALANINE AMINOTRANSFERASE 36 U/L (12-78); ALBUMIN 4.1 G/DL (3.4-5.0); ALKALINE PHOSPHATASE 77 U/L (46-116); ASPARTATE AMINO TRANSFERASE 21 U/L (15-37); BILIRUBIN,TOTAL 0.5 MG/DL (0.2-1.0)
--- NOTE | 2019-06-13 18:52 | Emergency Room Report ---
History of Present Illness General Chief Complaint: Abdominal Pain Source: Patient Present Illness HPI THIS IS HER SECOND VISIT FOR TODAY She left AMA earlier as she had to be somewhere. Pt. was previously here for cc: 33-year-old female presents to the ED c/o 02/07 in severity burning epigastric pain with nausea. Denies vomiting, fevers, chills , constipation or diarrhea. Pt. denies suspicion for . Pt. reports she has had this pain in the past several times. She reports tenderness upon palpation. She states she has not noticed whether or not food or oral intake exacerbates her symptoms. Patient denies history of NSAID or alcohol use. She denies urinary frequency, urgency, hematuria or dysuria. She reports no response from interventions during initial ED visit ( Gi Cocktail ) Allergies: Uncoded Allergies: JACKFRUIT (Allergy, Unknown, 03/31/19) Patient History Past Medical History: see triage record Past Surgical History: none Pertinent Family History: none Last Menstrual Period: 06/2019 Now: No Reviewed Nursing Documentation: PMH: Agreed; PSxH: Agreed Nursing Documentation-PMH Past Medical History: No History, Except For Hx Cardiac Problems: No - Psoriasis Hx Hypertension: No Hx Pacemaker: No Hx Asthma: Yes Hx COPD: No - Bronchitis Hx Diabetes: No - Kidney stones Hx Cancer: No Hx Gastrointestinal Problems: No - GERD Hx Dialysis: No Hx Neurological Problems: No Hx Cerebrovascular Accident: No Hx Seizures: No Review of Systems All Other Systems: negative except mentioned in HPI Physical Exam Vital Signs Date Time Temp Pulse Resp B/P (MAP) Pulse Ox O2 Delivery O2 Flow Rate FiO2 06/13/19 16:55 98.4 61 17 108/63 (78) 98 Room Air Medical Decision Making PA Attestation Dr. Ruggiero Is my supervising Physician whom patient management has been discussed with. Diagnostic Impression: Primary Impression: Abdominal pain Qualified Codes: R10.13 - Epigastric pain Additional Impression: UTI (urinary tract infection) Qualified Codes: N30.01 - Acute cystitis with hematuria ER Course c/o 02/07 in severity burning epigastric pain with nausea. Denies vomiting, fevers, chills, constipation or diarrhea. Pt. denies suspicion for . Pt. reports she has had this pain in the past several times. She reports tenderness upon palpation. She states she has not noticed whether or not food or oral intake exacerbates her symptoms. Patient denies history of NSAID or alcohol use. She denies urinary frequency, urgency, hematuria or dysuria. She reports no response from interventions during initial ED visit ( Gi Cocktail) Ddx considered but are not limited to GERD, Diverticulitis, acute appy, diarrhea ,UC, PUD, GE, pancreatitis, gallstone Vital signs: are WNL, pt. is afebrile H&PE are most consistent with UTI and gastritis ORDERS: -CBC, CMP, lipase: unremarkable WNL - UA: reviewed with pt. the results from earlier today: many bacteria and increased inflammatory markers, also negative preg. ED INTERVENTIONS: - Toradol IV - Pyridium PO Pt. reports toradol relieved her pain and she would like to go home with abx rx. DISCHARGE: At this time pt. is stable for d/c to home. Will provide printed patient care instructions, and any necessary prescriptions. Care plan and follow up instructions have been discussed with the patient prior to discharge. Labs Test 06/13/19 17:59 White Blood Count 8.8 K/UL (4.8-10.8) Red Blood Count 4.29 M/UL (4.20-5.40) Hemoglobin 13.2 G/DL (12.0-16.0) Hematocrit 37.8 % (37.0-47.0) Mean Corpuscular Volume 88 FL (80-99) Mean Corpuscular Hemoglobin 30.9 PG (27.0-31.0) Mean Corpuscular Hemoglobin Concent 35.0 G/DL (32.0-36.0) Red Cell Distribution Width 10.2 % (11.6-14.8) Platelet Count 209 K/UL (150-450) Mean Platelet Volume 8.2 FL (6.5-10.1) Neutrophils (%) (Auto) 65.7 % (45.0-75.0) Lymphocytes (%) (Auto) 22.9 % (20.0-45.0) Monocytes (%) (Auto) 8.3 % (1.0-10.0) Eosinophils (%) (Auto) 1.8 % (0.0-3.0) Basophils (%) (Auto) 1.3 % (0.0-2.0) Sodium Level 135 MMOL/L (136-145) Potassium Level 3.9 MMOL/L (3.5-5.1) Chloride Level 100 MMOL/L (98-107) Carbon Dioxide Level 31 MMOL/L (21-32) Anion Gap 4 mmol/L (5-15) Blood Urea Nitrogen 14 mg/dL (7-18) Creatinine 0.7 MG/DL (0.55-1.30) Estimat Glomerular Filtration Rate > 60 mL/min (>60) Glucose Level 82 MG/DL (74-106) Calcium Level 9.1 MG/DL (8.5-10.1) Total Bilirubin 0.5 MG/DL (0.2-1.0) Aspartate Amino Transf (AST/SGOT) 21 U/L (15-37) Alanine Aminotransferase (ALT/SGPT) 36 U/L (12-78) Alkaline Phosphatase 77 U/L (46-116) Total Protein 8.2 G/DL (6.4-8.2) Albumin 4.1 G/DL (3.4-5.0) Globulin 4.1 g/dL Albumin/Globulin Ratio 1.0 (1.0-2.7) Lipase 77 U/L (73-393) Last Vital Signs Date Time Temp Pulse Resp B/P (MAP) Pulse Ox O2 Delivery O2 Flow Rate FiO2 06/13/19 17:00 80 17 Room Air 06/13/19 17:00 98.4 108/63 98 Status: improved Disposition: HOME, SELF-CARE Condition: Stable Scripts Acetaminophen* (TYLENOL EXTRA STRENGTH*) 500 Mg Tablet 500 MG ORAL Q6H, #20 TAB 0 Refills Prov: Guerda Medrano 06/13/19 Ranitidine Hcl* (ZANTAC*) 150 Mg Tablet 150 MG ORAL TWICE A DAY for 7 Days, #14 TAB Prov: Guerda Medrano 06/13/19 Nitrofurantoin Monohyd/M-Cryst* (MACROBID 100 MG*) 100 Mg Capsule 100 MG ORAL EVERY 12 HOURS for 7 Days, #14 CAP Prov: Guerda Medrano 06/13/19 Patient Instructions: Urinary Tract Infection, [id number] Additional Instructions: Take medications as directed. Follow up with a Primary Care Provider in 3-5 days, even if your symptoms have resolved. --Please review list of primary care clinics, if you do not already have a primary care provider Return sooner to ED if new symptoms occur, or current symptoms become worse. - Please note that this Emergency Department Report was dictated using [employer] technology software, occasionally this can lead to erroneous entry secondary to interpretation by the dictation equipment. Guerda Medrano Jun 13, 2019 18:52
[2019-06-13] MEDS ORDERED: Phenazopyridine 200mg tab ORAL ONE (19:00)
--- NOTE | 2019-06-13 19:05 | NUR ---
HAND-OFF: Report given to Lisa JETT. Endorsed plan of care. No new order at this time.
[2019-06-13] MEDS ORDERED: Ketorolac 30mg Inj IV ONE (19:15)
[2019-06-13] MEDS ORDERED: ZANTAC150 MG ORAL (19:31)
[2019-06-13] MEDS ORDERED: TYLENOL EXTRA500 MG ORAL (19:31)
[2019-06-13] MEDS ORDERED: NITROFURANTOIN100 M2 ORAL (19:31)
[2019-06-13 19:35] VITALS: BP 112/63
== END 2019-06-13 19:35 | disposition home or self-care (01) ==
LOC: EMR 19:25
DX: N30.01 Acute cystitis with hematuria (principal); R11.0 Nausea; K21.9 Gastro-esophageal reflux disease without esophagitis
CPT/HCPCS: 36415; 80053; 83690; 85025; 96374; J1885; Z7502; 99284